=== PATIENT | male | born 1985 | race Caucasian/White ===

== ENCOUNTER 2020-01-07 20:54 | Emergency (ER) | payer OTHER ==
[~2020-01-07] VITALS: Ht 167.6 cm; Wt 68.0 kg
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
[2020-01-07] MEDS ORDERED: IV NS 0.9% 1,000 ML BAG IV ONE (22:00)
--- NOTE | 2020-01-07 22:00 | NUR ---
IV INITIATED RAC 18G. LABS DRAWN FROM SITE. NURSE WOUND CARE AT BEDSIDE FOR COLLECTION. IV INTACT AND PATENT, PLACED ON SALINE LOCK
--- NOTE | 2020-01-07 22:10 | NUR ---
PT PULLED OUT IV. Catheter intact and site benign. Pressure and 4x4 applied to site. No bleeding noted. MD AWARE. LABS AND FLUIDS CANCELLED PER MD ORDER
--- NOTE | 2020-01-07 22:21 | NUR ---
PT BROUGHT BY RADIOLOGY TO CT
--- NOTE | 2020-01-07 23:58 | NUR ---
Patient is ambulatory with a steady gait.
--- NOTE | 2020-01-07 23:58 | NUR ---
MEDICALLY CLEARED FOR DISCHARGE, PT [id number]. AMBULATORY WITH STEADY GAIT. Patient discharged to home in stable condition. Written and verbal after care instructions given. Patient verbalizes understanding of instruction.
[2020-01-08] VITALS: BP 112/79
== END 2020-01-08 | disposition home or self-care (01) ==
LOC: ER 20:57
DX: F10.129 Alcohol abuse with intoxication, unspecified (principal); F17.210 Nicotine dependence, cigarettes, uncomplicated; R41.82 Altered mental status, unspecified; Y90.9 Presence of alcohol in blood, level not specified
CPT/HCPCS: 70450; 72125; 96360; 99285; 99406; J7030; L0172